=== PATIENT | male | born 1990 | race Asian ===

== ENCOUNTER 2020-01-22 04:34 | Emergency (ER) | payer MEDICAID ==
[~2020-01-22] VITALS: Ht 177.8 cm; Wt 82.6 kg
[2020-01-22 04:48] VITALS: BP 134/91
[2020-01-22] MEDS ORDERED: ACETAMINOPHEN 500 MG TABLET ONE (05:12)
[2020-01-22] MEDS ORDERED: ACETAMINOPHEN 500 MG TABLET PO ONE (05:30)
== END 2020-01-22 05:16 | disposition home or self-care (01) ==
LOC: ED 05:14
DX: K02.9 Dental caries, unspecified (principal); K08.89 Other specified disorders of teeth and supporting structures
CPT/HCPCS: 99283

== ENCOUNTER 2020-12-14 14:09 | Emergency (ER) | payer MEDICAID ==
[~2020-12-14] VITALS: Ht 175.3 cm; Wt 80.0 kg
[2020-12-14 14:25] VITALS: BP 135/81
== END 2020-12-14 14:57 | disposition home or self-care (01) ==
LOC: ED 14:53
DX: K04.7 Periapical abscess without sinus (principal); K02.9 Dental caries, unspecified
CPT/HCPCS: 99283